=== PATIENT | male | born 1975 | race Hispanic/Latino ===

== ENCOUNTER 2019-06-03 14:15 | Emergency (ER) | payer OTHER | END 2019-06-03 15:38 | disposition home or self-care (01) | LOC: EDH 14:15 | DX: S20.211A Contusion of right front wall of thorax, initial encounter (principal); E11.9 Type 2 diabetes mellitus without complications; W13.2XXA Fall from, out of or through roof, initial encounter; Y93.89 Activity, other specified; Y92.89 Other specified places as the place of occurrence of the external cause; Y99.8 Other external cause status | CPT/HCPCS: 71101 ==

== ENCOUNTER 2022-12-11 18:05 | Emergency (ER) | payer OTHER, BC ==
[~2022-12-11] VITALS: Ht 165.1 cm; Wt 81.6 kg
[2022-12-11 18:51] VITALS: BP 137/100
[2022-12-11] MEDS: IBUPROFEN 800 MG TAB PO ONE (20:34)
[2022-12-11] MEDS: CYCLOBENZAPRINE HCL 10 MG TABLET PO ONE (20:34)
[2022-12-11 20:36] LABS: BASOPHILS % (AUTO) 0.5 % (0.0-5.0); EOSINOPHILS % (AUTO) 2.9 % (0.0-8.0); HEMATOCRIT 43.4 % (42-54); LYMPHOCYTES % (AUTO) 39.6 % (21.0-51.0); MEAN CORPUSCULAR HEMOGLOBIN 29.9 pg (27.0-33.0); MEAN CORPUSCULAR HGB CONC 35.7 g/dL (32.0-36.0); MEAN CORPUSCULAR VOLUME 83.6 fL (79-99); MONOCYTES % (AUTO) 6.5 % (3.0-13.0); NEUTROPHILS % (AUTO) 50.2 % (40.0-77.0); PLATELET COUNT (AUTO) 266 K/uL (130-400); RED BLOOD CELL COUNT(AUTO) 5.19 MIL/uL (4.50-6.20); RED CELL DISTRIBUTION WIDTH 12.5 % (11.0-15.5)
[2022-12-11 20:41] LABS: INR 0.93 (0.85-1.15); PROTHROMBIN TIME 10.1 SEC (9.6-11.6)
[2022-12-11 20:42] LABS: CREATININE 0.9 mg/dL (0.5-1.5); POTASSIUM 3.8 mmol/L (3.5-5.1)
[2022-12-11 20:43] LABS: PARTIAL THROMBOPLASTIN TIME 24.3 SEC (26.3-35.5)
[2022-12-11 20:46] LABS: ALBUMIN 4.4 g/dL (3.5-5.0); TOTAL PROTEIN, SERUM 8.4 g/dL (6.0-8.3)
[2022-12-11] MEDS ORDERED: IOHEXOL 350 MG/ML 100ML INFUS..BTL IV ONE (20:58)
[2022-12-11] MEDS: LORAZEPAM 2 MG/ML 1 ML VIAL ONE (21:45)
[2022-12-11] MEDS ORDERED: CYCL-309 PO (22:09)
[2022-12-11] MEDS ORDERED: IBUP-1493 PO (22:09)
== END 2022-12-11 22:26 | disposition home or self-care (01) ==
LOC: EDH 18:05
DX: M54.2 Cervicalgia (principal); M54.6 Pain in thoracic spine; E11.9 Type 2 diabetes mellitus without complications; Z79.1 Long term (current) use of non-steroidal anti-inflammatories (NSAID); Z90.49 Acquired absence of other specified parts of digestive tract; V89.2XXA Person injured in unspecified motor-vehicle accident, traffic, initial encounter; Y93.19 Activity, other involving water and watercraft; Y92.410 Unspecified street and highway as the place of occurrence of the external cause; Y99.8 Other external cause status
CPT/HCPCS: 99285; 72125; 80053; 85025; 85610; 85730; 36415; 71260; Q9967; J2060

== ENCOUNTER 2024-07-04 22:58 | Inpatient (IN) | payer BC, OTHER ==
[~2024-07-04] VITALS: Ht 165.1 cm; Wt 75.7 kg
[~2024-07-04 22:58] MED LIST: CYCL-309 PO; IBUP-1493 PO
[2024-07-04 23:28] LABS: BASOPHILS # (AUTO) 0.04 K/uL (0.00-0.20); BASOPHILS % (AUTO) 0.4 % (0.0-5.0); EOSINOPHILS % (AUTO) 4.1 % (0.0-8.0); HEMATOCRIT 40.3 % (42-54); IMMATURE GRANULOCYTE ABSOLUTE 0.03 K/uL (0-1); LYMPHOCYTES # (AUTO) 4.1 K/uL (1.0-4.8); LYMPHOCYTES % (AUTO) 41.5 % (21.0-51.0); MEAN CORPUSCULAR HGB CONC 34.2 g/dL (32.0-36.0); MEAN CORPUSCULAR VOLUME 87.6 fL (79-99); MONOCYTES # (AUTO) 0.6 K/uL (0.1-1.0); MONOCYTES % (AUTO) 6.4 % (3.0-13.0); NEUTROPHILS # (AUTO) 4.6 K/uL (1.8-7.7); NEUTROPHILS % (AUTO) 47.3 % (40.0-77.0); PLATELET COUNT (AUTO) 244 K/uL (130-400); RED CELL DISTRIBUTION WIDTH 12.6 % (11.0-15.5); WHITE BLOOD COUNT (AUTO) 9.8 K/uL (4.8-10.8)
[2024-07-04] MEDS: 0.9%NACL 1000ML 1,000 ML IV ONE ×2 (23:36)
[2024-07-04 23:54] LABS: ALBUMIN 3.3 g/dL (3.5-5.0); BILIRUBIN,TOTAL 0.7 mg/dL (0.2-1.0); CREATININE 1.4 mg/dL (0.5-1.3); MAGNESIUM 1.8 mg/dL (1.80-2.40); POTASSIUM 4.5 mmol/L (3.5-5.1); TOTAL PROTEIN, SERUM 6.6 g/dL (6.0-8.3)
[2024-07-05] MEDS: INSULIN HUMULIN R 100 UNIT/ML 3ML IV ONE (00:20)
[2024-07-05] MEDS: 0.9%NACL 1000ML 1,000 ML IV ONE (02:35)
[2024-07-05 04:18] LABS: APPEARANCE,URINE CLEAR (CLEAR); BILIRUBIN,URINE NEGATIVE (NEGATIVE); COLOR,URINE COLORLESS (YELLOW); GLUCOSE, URINE (UA) 200 mg/dL (NEGATIVE); KETONES,URINE NEGATIVE (NEGATIVE); LEUKOCYTE ESTERASE ,URINE NEGATIVE Leu/uL (NEGATIVE); NITRATE,URINE NEGATIVE (NEGATIVE); OCCULT BLOOD,URINE NEGATIVE (NEGATIVE); PROTEIN,URINE NEGATIVE (NEGATIVE); UROBILINOGEN,URINE 0.2 mg/dL (0.2-1.0)
[2024-07-05 04:22] LABS: ADD UA MICROSCOPIC YES
[2024-07-05 04:37] LABS: BACTERIA,URINE RARE /HPF (None Seen); MUCUS,URINE RARE LPF (None Seen); RBC,URINE 0-1 /HPF (0-1)
[2024-07-05] MEDS ORDERED: NITROGLYCERIN 0.4 MG SL TAB SL PRN (06:00)
[2024-07-05] MEDS ORDERED: ACETAMINOPHEN 325 MG TAB PO PRN (06:00)
[2024-07-05] MEDS ORDERED: GLUCAGON 1MG KIT 1 MG ML IM PRN (06:00)
[2024-07-05] MEDS ORDERED: POTASSIUM CHLORIDE 20MEQ/100ML 100 ML IV PRN (06:00)
[2024-07-05] MEDS ORDERED: POTASSIUM CHLORIDE 10% ELIXIR 20 MEQ/15 ML UDCUP PO PRN (06:00)
[2024-07-05] MEDS ORDERED: ONDANSETRON 4MG INJ IV PRN (06:00)
[2024-07-05] MEDS ORDERED: DEXTROSE 50%-WATER 50 ML DISP.SYRIN IV PRN (06:00)
[2024-07-05] MEDS: 0.9%NACL 1000ML 1,000 ML IV SCH (06:05)
[2024-07-05 06:13] LABS: BASOPHILS # (AUTO) 0.05 K/uL (0.00-0.20); BASOPHILS % (AUTO) 0.5 % (0.0-5.0); EOSINOPHILS # (AUTO) 0.38 K/uL (0.00-0.70); EOSINOPHILS % (AUTO) 3.7 % (0.0-8.0); HEMATOCRIT 36.7 % (42-54); IMMATURE GRANULOCYTE ABSOLUTE 0.03 K/uL (0-1); LYMPHOCYTES # (AUTO) 4.2 K/uL (1.0-4.8); LYMPHOCYTES % (AUTO) 41.3 % (21.0-51.0); MEAN CORPUSCULAR HEMOGLOBIN 30.6 pg (27.0-33.0); MEAN CORPUSCULAR HGB CONC 34.9 g/dL (32.0-36.0); MEAN CORPUSCULAR VOLUME 87.8 fL (79-99); MONOCYTES # (AUTO) 0.7 K/uL (0.1-1.0); MONOCYTES % (AUTO) 6.4 % (3.0-13.0); NEUTROPHILS # (AUTO) 4.9 K/uL (1.8-7.7); NEUTROPHILS % (AUTO) 47.8 % (40.0-77.0); PLATELET COUNT (AUTO) 219 K/uL (130-400); RED BLOOD CELL COUNT(AUTO) 4.18 MIL/uL (4.50-6.20); RED CELL DISTRIBUTION WIDTH 12.5 % (11.0-15.5); WHITE BLOOD COUNT (AUTO) 10.3 K/uL (4.8-10.8)
[2024-07-05 06:31] LABS: ALBUMIN 2.8 g/dL (3.5-5.0); BILIRUBIN,TOTAL 0.5 mg/dL (0.2-1.0); MAGNESIUM 1.7 mg/dL (1.80-2.40); POTASSIUM 3.6 mmol/L (3.5-5.1); THYROID STIMULATING HORMONE 0.94 uIU/mL (0.36-3.74); TOTAL PROTEIN, SERUM 5.6 g/dL (6.0-8.3)
[2024-07-05 06:42] LABS: HEMOGLOBIN A1C 12.9 % (4.0-6.0)
[2024-07-05] MEDS: INSULIN HUMULIN R 100 UNIT/ML 3ML SQ SCH (06:57)
[2024-07-05] MEDS: MIDODRINE HCL 5 MG TABLET PO SCH (09:00)
[2024-07-05] MEDS: FAMOTIDINE 20MG TAB PO SCH (09:00)
[2024-07-05] MEDS: MAGNESIUM 2GM PREMIX 50ML 50 ML IV PRN (09:01)
[2024-07-05] MEDS: KCL 20 MEQ ERTAB PO PRN (09:12)
[2024-07-05] MEDS ORDERED: GABA-529 PO (09:23)
[2024-07-05] MEDS ORDERED: ATOR20TA65 PO (09:23)
[2024-07-05] MEDS ORDERED: TIZA2CAP9 PO (09:23)
[2024-07-05] MEDS ORDERED: FAMO20TA8 PO (09:23)
[2024-07-05] MEDS ORDERED: LOSA25TA41 PO (09:23)
[2024-07-05] MEDS ORDERED: TAMS-1 PO (09:23)
[2024-07-05] MEDS ORDERED: AEC81 PO (09:23)
[2024-07-05 15:00] VITALS: O2SAT 94
[2024-07-05 16:00] VITALS: BP 136/63; PULSE 59; RESP 14
[2024-07-05] MEDS ORDERED: GEMFIBROZIL 600 MG TABLET PO SCH (16:30)
[2024-07-05] MEDS: ACETAMINOPHEN 325 MG TAB PO PRN (18:28)
[2024-07-05 20:00] VITALS: BP 120/78; PULSE 66; RESP 20; O2SAT 94
[2024-07-06] VITALS (9 sets, daily range): BP systolic 104–147; BP diastolic 72–99; PULSE 64–80; RESP 18–20; O2SAT 94–99
[2024-07-06] MEDS: INSULIN HUMULIN R 100 UNIT/ML 3ML SQ SCH ×2 (06:36→12:33)
[2024-07-06] MEDS ORDERED: FAMOTIDINE 20MG TAB PO SCH (09:00)
[2024-07-06] MEDS: ASPIRIN 81 MG EC TAB PO SCH (09:43)
[2024-07-06] MEDS: INSULIN GLARGINE 100 UNITS/ML 10 ML VIAL SQ SCH (12:33)
[2024-07-06 12:55] LABS: HEMATOCRIT 39.7 % (42-54); MEAN CORPUSCULAR HEMOGLOBIN 29.5 pg (27.0-33.0); MEAN CORPUSCULAR HGB CONC 33.5 g/dL (32.0-36.0); RED BLOOD CELL COUNT(AUTO) 4.51 MIL/uL (4.50-6.20); RED CELL DISTRIBUTION WIDTH 12.7 % (11.0-15.5); WHITE BLOOD COUNT (AUTO) 10.1 K/uL (4.8-10.8)
[2024-07-06 13:04] LABS: POTASSIUM 4.8 mmol/L (3.5-5.1)
[2024-07-06] MEDS: ATORVASTATIN 20 MG TABLET PO SCH (20:35)
[2024-07-07 04:13] VITALS: BP 113/75; PULSE 74; RESP 19
[2024-07-07 04:45] LABS: HEMATOCRIT 38.6 % (42-54); MEAN CORPUSCULAR HEMOGLOBIN 29.6 pg (27.0-33.0); MEAN CORPUSCULAR HGB CONC 33.9 g/dL (32.0-36.0); MEAN CORPUSCULAR VOLUME 87.3 fL (79-99); RED BLOOD CELL COUNT(AUTO) 4.42 MIL/uL (4.50-6.20); RED CELL DISTRIBUTION WIDTH 12.5 % (11.0-15.5); WHITE BLOOD COUNT (AUTO) 8.8 K/uL (4.8-10.8)
[2024-07-07 04:57] LABS: CREATININE 0.9 mg/dL (0.5-1.3); POTASSIUM 3.7 mmol/L (3.5-5.1)
[2024-07-07] MEDS: INSULIN GLARGINE 100 UNITS/ML 10 ML VIAL SQ SCH (06:52)
[2024-07-07 07:05] VITALS: BP 115/73; PULSE 56; RESP 20
[2024-07-07 08:00] VITALS: O2SAT 94
[2024-07-07] MEDS: INSULIN HUMULIN R 100 UNIT/ML 3ML SQ SCH (08:56)
[2024-07-07] MEDS ORDERED: GLIP10TA9 PO (09:34)
[2024-07-07 11:05] VITALS: BP 128/88; PULSE 66; RESP 20
== END 2024-07-07 15:30 | disposition home or self-care (01) | DRG 637 ==
LOC: EDH 22:58 → EDHIP 07-05 05:51 → 4AH 07-05 13:38
PROVIDERS: ADMIT Hospitalist; ATTEND Hospitalist
DX: E11.65 Type 2 diabetes mellitus with hyperglycemia (principal); G93.41 Metabolic encephalopathy; N17.9 Acute kidney failure, unspecified; E46 Unspecified protein-calorie malnutrition; D64.89 Other specified anemias; E78.00 Pure hypercholesterolemia, unspecified; I95.9 Hypotension, unspecified; Z79.4 Long term (current) use of insulin; Z79.84 Long term (current) use of oral hypoglycemic drugs; Z90.49 Acquired absence of other specified parts of digestive tract; Z68.27 Body mass index [BMI] 27.0-27.9, adult
CPT/HCPCS: 36415; 70450; 71045; 80048; 80053; 80061; 81001; 82010; 82306; 82550; 82948; 83036; 83735; 83880; 84443; 84484; 85025; 85027; 93005; C1894; G0378; J1815; J3475